=== PATIENT | male | born 1935 | race Caucasian/White ===

== ENCOUNTER 2016-07-12 11:18 | Inpatient (IN) | payer MEDICARE, OTHER ==
--- NOTE | 2016-07-12 13:51 | ED ---
General Adult HPI - General Chief complaint: Fall Stated complaint: Fall Time Seen by Provider: 07/12/16 13:33 Source: patient, family, RN notes reviewed, old records reviewed Mode of arrival: wheelchair Limitations: physical limitation - History of Present Illness Initial comments: Chief complaint history of present illness a 81-year-old male here with his [id number]. Patient has short memory problems. He does report though twice in the last several days when he stood up he walked several steps and fell down. Denies hurting himself. Denies blacking out or feeling dizzy at the time. He is here because he wants to find out why. - Related Data Home Medications Medication Instructions Recorded Confirmed Allopurinol [Zyloprim] 100 mg PO DAILY 07/12/16 07/12/16 Carvedilol [Coreg] 3.125 mg PO BID 07/12/16 07/12/16 Fluticasone/Salmeterol [Advair 1 puff INHALATION RT-BID 07/12/16 07/12/16 250-50 Diskus] Furosemide [Lasix] 40 mg PO DAILY 07/12/16 07/12/16 Gabapentin [Neurontin] 300 mg PO TID 07/12/16 07/12/16 Insulin NPL/Insulin Lispro 40 unit SQ -SUPPER 07/12/16 07/12/16 [humaLOG Mix 75-25 Kwikpen] Insulin NPL/Insulin Lispro 100 unit SQ -BRKFST 07/12/16 07/12/16 [humaLOG Mix 75-25 Kwikpen] Metolazone [Zaroxolyn] 2.5 mg PO DAILY 07/12/16 07/12/16 Omeprazole 20 mg PO DAILY 07/12/16 07/12/16 Potassium Chloride [Klor-Con 20] 20 meq PO BID 07/12/16 07/12/16 Simvastatin [Zocor] 10 mg PO HS 07/12/16 07/12/16 Spironolactone [Aldactone] 25 mg PO DAILY 07/12/16 07/12/16 Tamsulosin [Flomax] 0.4 mg PO DAILY 07/12/16 07/12/16 rOPINIRole HCL [Requip] 0.5 mg PO 07/12/16 07/12/16 Allergies Allergy/AdvReac Type Severity Reaction Status Date / Time No Known Allergies Allergy Verified 07/12/16 14:04 Review of Systems ROS Statement: Those systems with pertinent positive or pertinent negative responses have been documented in the HPI. Review of systems at this time no headache no visual acuity changes no neck pain no chest pain no shortness of breath no GI/ complaints no neuro deficits complained of weren't found. All systems reviewed. Past medical problems history of CHF, insulin-dependent diabetes mellitus, hyperlipidemia, hypertension, osteoarthritis. Patient's surgeries include CABG. Denies any others. Family history sister had laryngeal cancer. Patient denies ALLERGIES. Quit smoking and drinking 16 years ago. ROS Other: All systems not noted in ROS Statement are negative. Past Medical History Past Medical History: Diabetes Mellitus, Hyperlipidemia, Hypertension, Osteoarthritis (OA) History of Any Multi-Drug Resistant Organisms: None Reported Past Surgical History: Unable to Obtain Past Psychological History: No Psychological Hx Reported Smoking Status: Former smoker Past Alcohol Use History: Occasional Past Drug Use History: None Reported General Exam - General Exam Comments Initial Comments: General: The patient is awake and alert, in no distress, and does not appear acutely ill. Denies pain. Vital signs show temperature 97.8 pulse 84 story rate 20 pulse ox 96% room air blood pressure 107/48. Eye: Pupils are equal, round and reactive to light, extra-ocular movements are intact ; there is normal conjunctiva bilaterally. No signs of icterus. Ears, nose, mouth and throat: There are moist mucous membranes and no oral lesions. Neck: The neck is supple, there is no tenderness , no carotid bruit Cardiovascular: There is a regular rate and rhythm. Systolic murmur appreciated. Respiratory: Lungs are clear to auscultation, respirations are non-labored, breath sounds are equal. No wheezes, stridor, rales, or rhonchi. Gastrointestinal: Soft, non-distended, non-tender abdomen without masses or organomegaly noted. There is no rebound or guarding present. No CVA tenderness. Bowel sounds are unremarkable. Rectal examination was done. Some mild nodularity to the prostate appreciated. Stool was brown in color bedside guaiac was negative waiting for lab results. Back: There is no tenderness to palpation in the midline. There is no obvious deformity. Musculoskeletal: Normal ROM, no tenderness, There is no pedal edema. There is no calf tenderness or swelling. Sensation intact. Moves all extremities upper and lower without difficulty. Again claims no pain. Neurological: CN II-XII intact, There are no obvious motor or sensory deficits. Coordination appears grossly intact. Speech is normal. No neuro deficits but he is having trouble with short-term memory per [id number]. Skin: Skin is warm and dry and no rashes or lesions are noted. Psychiatric: Cooperative, appropriate mood & affect, normal judgment. No past history of any psychological issues or problems. Limitations: physical limitation Course Vital Signs 07/12/16 07/12/16 11:48 14:47 Temperature 97.8 F 97.8 F Pulse Rate 84 80 Respiratory 20 18 Rate Blood Pressure 107/48 110/59 O2 Sat by Pulse 96 97 Oximetry Medical Decision Making - Medical Decision Making Medical decision making patient's white count is low at 2.5 this is lower than it was one year ago. His hemoglobin 7.6 one year ago he was 12. Today's hematocrit is 25 and had been 36 one year ago. Platelets only 56,000. Potassium 3.8U and 40 creatinine 1.8 GFR 37. Glucose 122. Patient denies noticing any blood in his stool or any symptoms such as gastritis. The patient will be admitted the hospital transfused 1 unit and for the for further evaluation. Stool guaiac was negative per laboratory. The patient be admitted to Dr. Ritter in service. Patient receive 1 unit of packed RBCs because of symptomatic anemia with a hemoglobin 7.8. Further evaluation of be done. - Lab Data Result diagrams: 07/12/16 13:55 07/12/16 13:55 Lab Results 07/12/16 07/12/16 07/12/16 Range/Units 13:55 13:55 16:10 WBC 2.7 L (3.8-10.6) k/uL RBC 2.87 L (4.30-5.90) m/uL Hgb 7.6 L (13.0-17.5) gm/dL Hct 25.1 L (39.0-53.0) % MCV 87.4 (80.0-100.0) fL MCH 26.6 (25.0-35.0) pg MCHC 30.4 L (31.0-37.0) g/dL RDW 15.6 H (11.5-15.5) % Plt Count 56 L (150-450) k/uL Neutrophils % (Manual) 73.0 % Band Neutrophils % 1.0 % Lymphocytes % (Manual) 14.0 % Monocytes % (Manual) 11.0 % Eosinophils % (Manual) 1.0 % Neutrophils # (Manual) 2.0 (1.3-7.7) k/uL Lymphocytes # (Manual) 0.4 L (1.0-4.8) k/uL Monocytes # (Manual) 0.3 (0-1.0) k/uL Eosinophils # (Manual) 0.0 (0-0.7) k/uL Nucleated RBCs 0 (0-0) /100 WBC Manual Slide Review Performed Hypochromasia Marked Poikilocytosis (manual Present Sodium 131 L (137-145) mmol/L Potassium 3.8 (3.5-5.1) mmol/L Chloride 96 L (98-107) mmol/L Carbon Dioxide 26 (22-30) mmol/L Anion Gap 9 mmol/L BUN 40 H (9-20) mg/dL Creatinine 1.80 H (0.66-1.25) mg/dL Est GFR (MDRD) Af Amer 44 (>60 ml/min/1.73 sqM) Est GFR (MDRD) Non-Af 37 (>60 ml/min/1.73 sqM) Glucose 122 H (74-99) mg/dL Calcium 7.9 L (8.4-10.2) mg/dL Total Bilirubin 0.8 (0.2-1.3) mg/dL AST 37 (17-59) U/L ALT 33 (21-72) U/L Alkaline Phosphatase 88 (38-126) U/L Total Protein 5.6 L (6.3-8.2) g/dL Albumin 2.8 L (3.5-5.0) g/dL Stool Occult Blood Negative (Negative) Disposition Clinical Impression: Symptomatic anemia, Fall Disposition: ADMITTED IP TO THIS [facility] Condition: Serious
[2016-07-12 14:21] LABS: Aty Lym Flag Slight; CH 26.3; CHCM 30.1; HCT 25.1 % (39.0-53.0); HDW 3.16; HGB 7.6 gm/dL (13.0-17.5); Hypochromasia Marked; MCH 26.6 pg (25.0-35.0); MCHC 30.4 g/dL (31.0-37.0); MCV 87.4 fL (80.0-100.0); Mean Platelet Volume 9.4; RBC 2.87 m/uL (4.30-5.90); RDW 15.6 % (11.5-15.5); WBC 2.7 k/uL (3.8-10.6); WBC (Perox) 2.77
[2016-07-12 14:27] LABS: Calcium 7.9 mg/dL (8.4-10.2); Potassium 3.8 mmol/L (3.5-5.1); Total Bilirubin 0.8 mg/dL (0.2-1.3); Total Protein 5.6 g/dL (6.3-8.2)
[2016-07-12 14:36] LABS: Add Differential Manual Differential
[2016-07-12 14:40] LABS: Manual Review Performed; Nucleated Red Blood Cells 0 /100 WBC (0-0); Total Cells Counted 100
[2016-07-12] MEDS ORDERED: SODIUM CHLORIDE 0.9% 1,000 ML IV SCH (15:30)
[2016-07-12] MEDS ORDERED: NALOXONE 0.4 MG/ML 1 ML VIAL IV PRN (16:45)
[2016-07-12 21:27] VITALS: BMI 25.0
[2016-07-12] MEDS: POTASSIUM CHLORIDE ER 20 MEQ TAB.ER PO SCH (23:16)
[2016-07-12] MEDS: SODIUM CHLORIDE 0.9% 1,000 ML IV SCH (23:16)
[2016-07-12] MEDS: GABAPENTIN 300 MG CAP PO SCH (23:16)
[2016-07-13 05:41] LABS: Glucose,Whole Blood 112 mg/dL (75-99)
[2016-07-13 06:28] LABS: Basophils % (A) 0 %; CH 26.9; CHCM 30.3; Eosinophils # (A) 0.1 k/uL (0-0.7); Eosinophils % (A) 6 %; HCT 27.7 % (39.0-53.0); HGB 8.4 gm/dL (13.0-17.5); Hypochromasia Marked; Luc # (Auto) 0.08; Luc % (Auto) 3; Lymphocytes # (A) 0.4 k/uL (1.0-4.8); Lymphocytes % (A) 16 %; MCH 26.9 pg (25.0-35.0); MCHC 30.3 g/dL (31.0-37.0); MCV 88.8 fL (80.0-100.0); Mean Platelet Volume 9.1; Monocytes # (A) 0.1 k/uL (0-1.0); Monocytes % (A) 5 %; Neutrophils # (A) 1.8 k/uL (1.3-7.7); Neutrophils % (A) 70 %; Poikilocytosis Slight; RBC 3.12 m/uL (4.30-5.90); RDW 15.5 % (11.5-15.5); WBC 2.6 k/uL (3.8-10.6); WBC (Perox) 2.65
[2016-07-13] MEDS: SODIUM CHLORIDE 0.9% 1,000 ML IV SCH ×2 (06:31→14:48)
[2016-07-13 06:46] LABS: Anion Gap 6 mmol/L; Blood Urea Nitrogen 34 mg/dL (9-20); Calcium 7.9 mg/dL (8.4-10.2); Carbon Dioxide 24 mmol/L (22-30); Chloride 100 mmol/L (98-107); Glucose 110 mg/dL (74-99); Non-African American GFR(MDRD) 53 (>60 ml/min/1.73 sqM); Sodium 130 mmol/L (137-145)
[2016-07-13] MEDS: GABAPENTIN 300 MG CAP PO SCH ×3 (08:48→22:18)
[2016-07-13] MEDS: ALLOPURINOL 100 MG TAB PO SCH (08:48)
[2016-07-13] MEDS: POTASSIUM CHLORIDE ER 20 MEQ TAB.ER PO SCH ×2 (08:49→22:17)
[2016-07-13] MEDS: SPIRONOLACTONE 25 MG TAB PO SCH (08:50)
[2016-07-13] MEDS: METOLAZONE 2.5 MG TAB PO SCH (08:50)
[2016-07-13] MEDS: PANTOPRAZOLE 40 MG/10 ML VIAL IVP SCH ×2 (11:09→22:17)
[2016-07-13 11:40] LABS: Glucose,Whole Blood 195 mg/dL (75-99)
--- NOTE | 2016-07-13 11:42 | HP ---
DATE OF ADMISSION: CHIEF COMPLAINT: Syncope and anemia. HISTORY OF PRESENT ILLNESS: This is another admission for this 81-year-old white male who has a history of CAD, COPD, IDDM and arthritis. He apparently had possibly as many as 2 syncopal episodes or falls at home. He is not sure why. He came to the emergency room where there is no obvious abnormality without any focal neurologic deficits, abnormal vital signs, etc. However, his hemoglobin is 7.8. He denied any melena, hematochezia, abdominal pain, etc. REVIEW OF SYSTEMS: He denies any headaches, focal neurologic deficits, change in vision or hearing, palpitations, chest pain, orthopnea, PND, abdominal pain, nausea, vomiting, hematemesis, melena, hematochezia, colitis, dysuria, hematuria, frequency, etc. Past medical history, family history and personal and social histories reveal that he cannot take statins due to myalgias. He is on allopurinol 100 mg once a day, spironolactone 25 mg once a day, metolazone 2.5 mg once a day, tamsulosin 0.4 at bedtime, Humalog 75/25, 100 units in the morning and 40 at night, furosemide 40 mg once day, Advair 250/50 one puff twice a day, carvedilol 3.125 mg twice a day, ropinirole 0.5 at bedtime, potassium 20 mEq twice a day, Neurontin 300 mg t.i.d., Zocor 10 mg at bedtime, vitamin D 50,000 units a month, magnesium 64 mg 3 times a day, omeprazole 20 mg once a day, 81 mg of aspirin a day. Past medical history, family history and personal and social histories reveal that he had a prior coronary artery bypass and has been treated for congestive heart failure. His diabetes is generally fairly well controlled. He has a lot of trouble with arthritis and back pain. He does not smoke. PHYSICAL EXAM: Blood pressure 108/60 with pulse 78, respirations 16. He is afebrile. GENERAL: He appeared to be well developed, well nourished in no acute distress. Skin color is normal. Skin is warm and dry. Lymph nodes are not enlarged. Head, ears, eyes, nose, mouth, and throat were normal and carotids are normal. Neck veins not distended. Chest is clear. There are no rales. Cardiac exam demonstrated sinus rhythm with no murmurs or extra sounds. He had gynecomastia. The abdomen is soft and nontender without visceromegaly or masses. EXTREMITIES: Normal. NEUROLOGICAL: He is intact. IMPRESSION: 1. Episode of syncope (?). 2. Two separate falls at home. 3. Anemia. 4. Coronary artery disease. 5. Diabetes. 6. Chronic obstructive pulmonary disease. 7. History of congestive heart failure. PLAN: 1. Bed rest. 2. IV fluids. 3. Frequent monitoring of his vital signs, neurologic status and hemoglobin. 4. GI workup.
--- NOTE | 2016-07-13 11:46 | PN ---
DATE OF SERVICE: 07/13/2016 CHIEF COMPLAINT: Falls and anemia. HISTORY OF PRESENT ILLNESS: This gentleman is awake, alert, and he has had no signs of any blood loss. He has had no chest pain or shortness of breath. PHYSICAL EXAMINATION: His vital signs are normal. The chest is clear. Cardiac exam is normal. The abdomen is soft and nontender. IMPRESSION: 1. Frequent falling. 2. Syncopal episode. 3. Anemia. 4. Coronary artery disease. 5. Congestive heart failure. 6. Diabetes. PLAN: Continue to monitor hemoglobin and obtain GI consult.
[2016-07-13 17:11] LABS: Glucose,Whole Blood 182 mg/dL (75-99)
[2016-07-13] MEDS: SYMBICORT 80-4.5 MCG INHALER INHALATION SCH (17:38)
[2016-07-13] MEDS: INSULIN NPL/INSULIN LISPRO 100 UNIT/ML 10 ML VIAL (Humalog 75/25) SQ SCH (17:39)
[2016-07-13] MEDS: ACETAMINOPHEN TAB 325 MG TAB PO PRN (17:41)
[2016-07-13] MEDS: CARVEDILOL 3.125 MG TAB PO SCH (17:41)
[2016-07-13] MEDS: ATORVASTATIN 10 MG TAB PO SCH (22:17)
[2016-07-14 06:57] LABS: Glucose,Whole Blood 105 mg/dL (75-99)
[2016-07-14 07:57] LABS: ALT 36 U/L (21-72); AST 29 U/L (17-59); Alkaline Phosphatase 74 U/L (38-126); Anion Gap 5 mmol/L; Blood Urea Nitrogen 24 mg/dL (9-20); Carbon Dioxide 23 mmol/L (22-30); Chloride 106 mmol/L (98-107); Glucose 100 mg/dL (74-99); Non-African American GFR(MDRD) >60 (>60 ml/min/1.73 sqM); Potassium 4.3 mmol/L (3.5-5.1); Sodium 134 mmol/L (137-145); Total Bilirubin 0.9 mg/dL (0.2-1.3); Total Protein 4.7 g/dL (6.3-8.2)
[2016-07-14 08:01] LABS: Basophils % (A) 0 %; CH 26.6; CHCM 29.7; Eosinophils # (A) 0.1 k/uL (0-0.7); Eosinophils % (A) 5 %; HDW 3.81; HGB 7.8 gm/dL (13.0-17.5); Hypochromasia Marked; Luc # (Auto) 0.04; Luc % (Auto) 4; Lymphocytes # (A) 0.4 k/uL (1.0-4.8); Lymphocytes % (A) 35 %; MCH 27.1 pg (25.0-35.0); MCHC 30.2 g/dL (31.0-37.0); MCV 89.9 fL (80.0-100.0); Monocytes # (A) 0.1 k/uL (0-1.0); Monocytes % (A) 6 %; Neutrophils # (A) 0.6 k/uL (1.3-7.7); Neutrophils % (A) 50 %; Poikilocytosis Slight; RBC 2.89 m/uL (4.30-5.90); RDW 15.4 % (11.5-15.5); WBC (Perox) 1.35
--- NOTE | 2016-07-14 08:12 | CDI ---
In responding to this query, please exercise your independent professional judgment. The [facility] Coding Staff and Clinical Documentation Specialists appreciate your assistance in clarifying documentation, maintaining compliance with coding guidelines, accurately documenting patients condition and capturing severity of illness. The fact that a question is asked does not imply that any particular answer is desired or expected. Communication forms are a method of clarifying documentation and are not made part of the Legal Health Record. Thank you in advance for your clarification. Last Revision, May 2015 Licha Acuña [address] [facility] [place] [address] Documentation Clarification Form Date: 07/14/2016 8:04:00 AM From: Citlaly Brasher Admit Date: 07/12/2016 4:45:00 PM Patient Name: Doug Zimmerman Visit Number: [id number] Dr. Edvin Anderson Patient presents with a BUN/CR/GFR of: 40/1.80/37 History/Risk Factors: Hypertension Diabetes Mellitus CHF - on PO Lasix PO Aldactone Clinical Indicators: see labs above BUN/CR/GFR on07/14: 24/0.98/>60 Treatment: IV fluids @70 cc/hr Lab monitoring In order to capture the severity of condition, please clarify if the condition signifies: Acute renal failure Acute on chronic renal failure Chronic kidney disease (CKD) and please stage Stage 2 GFR 60-89 Stage 3 GFR 30-59 Other Stage (please specify) Unable to determine Other (please specify) Please document in your progress notes and discharge summary in order to capture severity of illness and risk of mortality. Include clinical findings that support your diagnosis. FYI: Press F11 to launch patient chart. Place X here if this finding has no clinical significance, is not applicable or if you are not able to provide any additional documentation. BRODY
--- NOTE | 2016-07-14 08:19 | CDI ---
In responding to this query, please exercise your independent professional judgment. The [facility] Coding Staff and Clinical Documentation Specialists appreciate your assistance in clarifying documentation, maintaining compliance with coding guidelines, accurately documenting patients condition and capturing severity of illness. The fact that a question is asked does not imply that any particular answer is desired or expected. Communication forms are a method of clarifying documentation and are not made part of the Legal Health Record. Thank you in advance for your clarification. Last Revision, May 2015 Licha Acuña [address] [facility] [place] [address] Documentation Clarification Form Date: 07/14/2016 8:12:00 AM From: Citlaly Brasher Admit Date: 07/12/2016 4:45:00 PM Patient Name: Doug Zimmerman Visit Number: [id number] Dr. Edvin Anderson History/Risk factors: Diabetes Mellitus Hypertension CHF COPD Clinical indicators: Presented due to falls Labs on presentation: wbc 2.7, rbc.87, platelets 56 Other labs: hgb 7.6 Treatment: Lab monitoring In your professional opinion, can you please clarify if these findings signify one of the following conditions? Pancytopenia drug induced, specify drug Pancytopenia due to other, please specify Anemia, please specify etiology Thrombocytopenia, please specify etiology Unable to determine Other condition (please specify) Please document in your progress notes and discharge summary in order to capture severity of illness and risk of mortality. Include clinical findings that support your diagnosis. FYI: Press F11 to launch patient chart. Place X here if this finding has no clinical significance, is not applicable or if you are not able to provide any additional documentation. MTDD
[2016-07-14 08:24] LABS: WBC 1.1 k/uL (3.8-10.6)
[2016-07-14] MEDS: GABAPENTIN 300 MG CAP PO SCH ×3 (08:30→22:18)
[2016-07-14] MEDS: FUROSEMIDE 40 MG TAB PO SCH (08:30)
[2016-07-14] MEDS: METOLAZONE 2.5 MG TAB PO SCH (08:30)
[2016-07-14] MEDS: PANTOPRAZOLE 40 MG/10 ML VIAL IVP SCH (08:30)
[2016-07-14] MEDS: CARVEDILOL 3.125 MG TAB PO SCH ×2 (08:31→17:33)
[2016-07-14] MEDS: SPIRONOLACTONE 25 MG TAB PO SCH (08:31)
[2016-07-14] MEDS: TAMSULOSIN 0.4 MG CAP.ER.24H PO SCH (08:31)
[2016-07-14] MEDS: ALLOPURINOL 100 MG TAB PO SCH (08:31)
[2016-07-14] MEDS: POTASSIUM CHLORIDE ER 20 MEQ TAB.ER PO SCH ×2 (08:31→22:18)
--- NOTE | 2016-07-14 09:39 | P.CONS ---
History of Present Illness - Reason for Consult Consult date: 07/14/16 Anemia Requesting physician: Edvin Anderson - History of Present Illness 81-year-old gentleman patient Dr. Anderson with past medical history of CAD, CHF , diabetes mellitus, COPD, alcohol liver cirrhosis; hepatitis panel negative, portal hypertension, ascites, splenomegaly with chronic thrombocytopenia, CAD, diabetes mellitus, and hyperlipidemia. Brought into the hospital by his brother -in-law reports the weakness and recent falls. Admission hemoglobin 7.6 currently 8.4. MCV 87. Hemoglobin a year ago 12.2. White count 2.6. Platelets 53,000 currently 44,000. Repeat white count 1.1. INR 1.2. BUN 34. Creatinine 1.3. Stool occult blood negative. Iron indices 1 year ago within normal limits. Consultation requested for evaluation of anemia. No history of EGD or colonoscopy. Denies hematemesis, hematochezia, melena, changes in appetite, weight loss, or abdominal pain. Review of Systems All systems: negative (See HPI) Past Medical History Past Medical History: Coronary Artery Disease (CAD), Diabetes Mellitus, Hyperlipidemia, Hypertension, Osteoarthritis (OA) History of Any Multi-Drug Resistant Organisms: None Reported Past Surgical History: Unable to Obtain Additional Past Surgical History / Comment(s): Double Hernia repair, CABG x2 1996 Past Psychological History: No Psychological Hx Reported Smoking Status: Former smoker Past Alcohol Use History: Occasional Past Drug Use History: None Reported - Past Family History Mother Family Medical History: Congestive Heart Failure (CHF) Father Family Medical History: Congestive Heart Failure (CHF) Medications and Allergies Home Medications Medication Instructions Recorded Confirmed Type Allopurinol [Zyloprim] 100 mg PO DAILY 07/12/16 07/12/16 History Carvedilol [Coreg] 3.125 mg PO BID 07/12/16 07/12/16 History Fluticasone/Salmeterol [Advair 1 puff INHALATION RT-BID 07/12/16 07/12/16 History 250-50 Diskus] Furosemide [Lasix] 40 mg PO DAILY 07/12/16 07/12/16 History Gabapentin [Neurontin] 300 mg PO TID 07/12/16 07/12/16 History Insulin NPL/Insulin Lispro 40 unit SQ AC-SUPPER 07/12/16 07/12/16 History [humaLOG Mix 75-25 Kwikpen] Insulin NPL/Insulin Lispro 100 unit SQ AC-BRKFST 07/12/16 07/12/16 History [humaLOG Mix 75-25 Kwikpen] Metolazone [Zaroxolyn] 2.5 mg PO DAILY 07/12/16 07/12/16 History Omeprazole 20 mg PO DAILY 07/12/16 07/12/16 History Potassium Chloride [Klor-Con 20] 20 meq PO BID 07/12/16 07/12/16 History Simvastatin [Zocor] 10 mg PO HS 07/12/16 07/12/16 History Spironolactone [Aldactone] 25 mg PO DAILY 07/12/16 07/12/16 History Tamsulosin [Flomax] 0.4 mg PO DAILY 07/12/16 07/12/16 History rOPINIRole HCL [Requip] 0.5 mg PO HS 07/12/16 07/12/16 History Allergies Allergy/AdvReac Type Severity Reaction Status Date / Time No Known Allergies Allergy Verified 07/12/16 14:04 Physical Exam Vitals: Vital Signs Temp Pulse Resp BP Pulse Ox 07/14/16 07:00 98.1 F 91 79 H 119/51 91 L 07/13/16 22:40 98 F 84 18 107/49 97 07/13/16 16:52 98 16 07/13/16 16:00 99.9 F H 98 16 126/56 92 L 07/13/16 12:00 98.1 F 87 16 109/49 95 Intake and Output 07/13/16 07/14/16 07/14/16 22:59 06:59 14:59 Intake Total 260 800 Balance 260 800 Intake: IV 210 560 Sodium Chloride 0.9% 1, 210 560 000 ml @ 70 mls/hr IV . [id number] [facility] Rx#:[id number] Oral 50 240 Other: Voiding Method Bedside Commode Bedside Commode Urinal Urinal # Voids 1 Weight 61.5 kg General appearance: The patient is alert, oriented, in no acute distress. HET: Head is normocephalic and atraumatic. Pupils are equal and reactive. Oropharynx is clear without lesions. Neck: Supple without lymphadenopathy. Trachea midline. Heart: S1 S2. Regular rate and rhythm. Lungs: No crackles or wheezes are heard. Abdomen: Soft, nontender, nondistended with bowel sounds. No peritoneal signs. No palpable organomegaly or masses. Extremities: Normal skin color and turgor. No cyanosis, rash, ulceration, clubbing, or edema. Radial and pedal pulses are 2/4 bilaterally. Neurological: No focal deficits. Strength and sensation are grossly intact. Results CBC & Chem 7: 07/15/16 07:20 07/15/16 07:20 Labs: Abnormal Lab Results - Last 24 Hours (Table) 07/13/16 07/13/16 07/14/16 Range/Units 11:38 17:05 06:56 Sodium (137-145) mmol/L BUN (9-20) mg/dL Glucose (74-99) mg/dL POC Glucose (mg/dL) 195 H 182 H 105 H (75-99) mg/dL Calcium (8.4-10.2) mg/dL Total Protein (6.3-8.2) g/dL Albumin (3.5-5.0) g/dL 07/14/16 Range/Units 07:10 Sodium 134 L (137-145) mmol/L BUN 24 H (9-20) mg/dL Glucose 100 H (74-99) mg/dL POC Glucose (mg/dL) (75-99) mg/dL Calcium 8.0 L (8.4-10.2) mg/dL Total Protein 4.7 L (6.3-8.2) g/dL Albumin 2.2 L (3.5-5.0) g/dL Assessment and Plan (1) Symptomatic anemia Narrative/Plan: 81-year-old male with a history of cirrhosis admitted with symptomatic anemia without overt bleeding. Rule out occult loss. Status: Acute (2) Pancytopenia Status: Acute (3) Cirrhosis Status: Acute (4) Thrombocytopenia Status: Chronic (5) Splenomegaly Status: Chronic (6) H/O ETOH abuse Status: Chronic Plan: 1. EGD colonoscopy once pancytopenia improves this can be performed as an outpatient, he has passed a few brown colored bowel movements in the last 24 hours. His overall pancytopenic presentation appears to be chronic in nature. Advance diet. Return to office in 1-2 weeks for discussion of outpatient endoscopy based on repeat outpatient chemistries. 2. AFP level reviewed. 3. Iron indices reviewed. 4. Hematology consultation for pancytopenia recommended. 5. Will follow as needed. Assessment and plan of care discussed with Dr. Leonard.
[2016-07-14 10:21] LABS: Hemoglobin A1C 6.1 % (4.2-6.1)
[2016-07-14 11:40] LABS: Glucose,Whole Blood 145 mg/dL (75-99)
[2016-07-14] MEDS: ACETAMINOPHEN TAB 325 MG TAB PO PRN (13:01)
[2016-07-14] MEDS: SODIUM CHLORIDE 0.9% 1,000 ML IV SCH (13:02)
[2016-07-14 14:04] LABS: % Iron Saturation 8.9 % (20-50)
--- NOTE | 2016-07-14 14:23 | PN ---
DATE OF SERVICE: 07/14/2015 CHIEF COMPLAINT: Anemia. HISTORY OF PRESENT ILLNESS: This gentleman is doing fairly well and he has had no further problems but he is going for a scope tomorrow. PHYSICAL EXAM: His color is good and chest is clear. Cardiac exam is normal. The abdomen is soft and nontender. IMPRESSION: Anemia, probably due to gastrointestinal blood loss. PLAN: Scope is tomorrow.
[2016-07-14] MEDS ORDERED: PEG 3350-NA SULF,BICARB,CL/KCL 4,000 ML BOTTLE PO ONE (15:00)
[2016-07-14] MEDS: SYMBICORT 80-4.5 MCG INHALER INHALATION SCH ×3 (15:20→15:23)
[2016-07-14 17:07] LABS: Glucose,Whole Blood 214 mg/dL (75-99)
[2016-07-14] MEDS: INSULIN NPL/INSULIN LISPRO 100 UNIT/ML 10 ML VIAL (Humalog 75/25) SQ SCH (17:35)
[2016-07-14 20:18] LABS: Glucose,Whole Blood 169 mg/dL (75-99)
[2016-07-14] MEDS: ATORVASTATIN 10 MG TAB PO SCH (22:18)
[2016-07-15] MEDS: SODIUM CHLORIDE 0.9% 1,000 ML IV SCH (02:00)
[2016-07-15 07:41] LABS: Basophils % (A) 1 %; CH 26.6; CHCM 28.7; Eosinophils # (A) 0.1 k/uL (0-0.7); Eosinophils % (A) 5 %; HCT 28.8 % (39.0-53.0); HDW 3.58; HGB 8.4 gm/dL (13.0-17.5); Hypochromasia Marked; Large Platelets Flag Slight; Luc # (Auto) 0.04; Luc % (Auto) 3; Lymphocytes # (A) 0.5 k/uL (1.0-4.8); Lymphocytes % (A) 34 %; MCH 27.2 pg (25.0-35.0); MCHC 29.3 g/dL (31.0-37.0); Mean Platelet Volume 11.9; Monocytes # (A) 0.1 k/uL (0-1.0); Monocytes % (A) 8 %; Neutrophils # (A) 0.7 k/uL (1.3-7.7); Neutrophils % (A) 50 %; Poikilocytosis Slight; RBC 3.09 m/uL (4.30-5.90); RDW 15.7 % (11.5-15.5); WBC (Perox) 1.43
[2016-07-15 07:46] LABS: WBC 1.5 k/uL (3.8-10.6)
[2016-07-15 07:53] LABS: ALT 36 U/L (21-72); AST 36 U/L (17-59); Alkaline Phosphatase 70 U/L (38-126); Anion Gap 8 mmol/L; Blood Urea Nitrogen 19 mg/dL (9-20); Carbon Dioxide 17 mmol/L (22-30); Chloride 107 mmol/L (98-107); Glucose 94 mg/dL (74-99); Non-African American GFR(MDRD) >60 (>60 ml/min/1.73 sqM); Sodium 132 mmol/L (137-145)
[2016-07-15 08:00] LABS: Glucose,Whole Blood 97 mg/dL (75-99)
[2016-07-15 08:06] LABS: Potassium 5.1 mmol/L (3.5-5.1)
[2016-07-15] MEDS: GABAPENTIN 300 MG CAP PO SCH (08:37)
[2016-07-15] MEDS: SPIRONOLACTONE 25 MG TAB PO SCH (08:38)
[2016-07-15] MEDS: POTASSIUM CHLORIDE ER 20 MEQ TAB.ER PO SCH (08:38)
[2016-07-15] MEDS: CARVEDILOL 3.125 MG TAB PO SCH (08:38)
[2016-07-15] MEDS: METOLAZONE 2.5 MG TAB PO SCH (08:38)
[2016-07-15] MEDS: FUROSEMIDE 40 MG TAB PO SCH (08:38)
[2016-07-15] MEDS: ALLOPURINOL 100 MG TAB PO SCH (08:38)
[2016-07-15] MEDS: TAMSULOSIN 0.4 MG CAP.ER.24H PO SCH (08:38)
[2016-07-15] MEDS ORDERED: PANTOPRAZOLE 40 MG/10 ML VIAL IVP SCH (09:00)
[2016-07-15 09:18] VITALS: BP 119/56; PULSE 76; RESP 20; TEMP 98.2
--- NOTE | 2016-07-15 10:55 | P.CONS ---
History of Present Illness - Reason for Consult Consult date: 07/14/16 pancytopenia Requesting physician: Karlie Gama - Chief Complaint falls - History of Present Illness Mr. Zimmerman is a pleasant male pt who was referred to Dr. Servin by his PCP , Dr Anderson for a low platelet count, on 11/15/14 when his plt count was 72, 000. a few rprevious labs were reviewed and confirmed the same. His labs also showed a borderline anemia and leukopenia. Pt has a history of heavy ETOH use, quitting in the mid s. Additional work up was positive for heterogenous liver with mild splenomegaly on US, consistent with cirrhosis and portal HTN. Iron stores were low, he had mildly elevated rheumatoid factor and kappa light chains, which was non specific. He had a colonoscopy in 02/15 with polyp removal. He was subsequently started on PO iron. As plt appeared to be low due to prior ETOH use, and splenic sequestration and observation was recommended. Pt was last seen by Dr. Servin about 1 year ago, he had not followed up as directed for unclear reasons. Pt did not remember ever seeing Dr. Servin and he is not able to recall if he has a problem with his blood. He does bruise easily , denied bloody nose, coughing up blood or seeing blood in the toilet when he goes to the bathroom. He said he was recently hospitalized at [facility] for CHF, he states his legs are still swollen. He denies chest pain or palpitations, he has an occasional cough and can be SOB when he is active. He denies sweating at night, difficulty swallowing, vomiting, heartburn. He does fill up fast, he can only eat about half of his breakfast from [employer] at once, he denies loss of appetite. Review of Systems All systems: negative Constitutional: Reports as per HPI Past Medical History Past Medical History: Coronary Artery Disease (CAD), Diabetes Mellitus, Hyperlipidemia, Hypertension, Liver Disease, Osteoarthritis (OA) History of Any Multi-Drug Resistant Organisms: None Reported Past Surgical History: Unable to Obtain Additional Past Surgical History / Comment(s): Double Hernia repair, CABG x2 1996 Past Psychological History: No Psychological Hx Reported Smoking Status: Former smoker Past Alcohol Use History: Occasional Past Drug Use History: None Reported - Past Family History Mother Family Medical History: Congestive Heart Failure (CHF) Father Family Medical History: Congestive Heart Failure (CHF) Medications and Allergies Home Medications Medication Instructions Recorded Confirmed Type Allopurinol [Zyloprim] 100 mg PO DAILY 07/12/16 07/12/16 History Carvedilol [Coreg] 3.125 mg PO BID 07/12/16 07/12/16 History Fluticasone/Salmeterol [Advair 1 puff INHALATION RT-BID 07/12/16 07/12/16 History 250-50 Diskus] Furosemide [Lasix] 40 mg PO DAILY 07/12/16 07/12/16 History Gabapentin [Neurontin] 300 mg PO TID 07/12/16 07/12/16 History Insulin NPL/Insulin Lispro 40 unit SQ AC-SUPPER 07/12/16 07/12/16 History [humaLOG Mix 75-25 Kwikpen] Insulin NPL/Insulin Lispro 100 unit SQ -BRKFST 07/12/16 07/12/16 History [humaLOG Mix 75-25 Kwikpen] Metolazone [Zaroxolyn] 2.5 mg PO DAILY 07/12/16 07/12/16 History Omeprazole 20 mg PO DAILY 07/12/16 07/12/16 History Potassium Chloride [Klor-Con 20] 20 meq PO BID 07/12/16 07/12/16 History Simvastatin [Zocor] 10 mg PO HS 07/12/16 07/12/16 History Spironolactone [Aldactone] 25 mg PO DAILY 07/12/16 07/12/16 History Tamsulosin [Flomax] 0.4 mg PO DAILY 07/12/16 07/12/16 History rOPINIRole HCL [Requip] 0.5 mg PO HS 07/12/16 07/12/16 History Allergies Allergy/AdvReac Type Severity Reaction Status Date / Time No Known Allergies Allergy Verified 07/12/16 14:04 Physical Exam Vitals: Vital Signs Temp Pulse Resp BP Pulse Ox 07/14/16 16:00 18 07/14/16 15:00 98 F 74 18 123/55 95 07/14/16 08:00 16 07/14/16 07:00 98.1 F 91 79 H 119/51 91 L 07/13/16 22:40 98 F 84 18 107/49 97 Intake and Output 07/14/16 07/14/1617 06:59 14:59 22:59 Intake Total 800 490 Balance 800 490 Intake: IV 560 490 Sodium Chloride 0.9% 1, 560 490 000 ml @ 70 mls/hr IV . [id number] [facility] Rx#:[id number] Oral 240 Other: Voiding Method Bedside Commode Bedside Commode Bedside Commode Urinal Urinal Urinal # Voids 1 3 Weight 61.5 kg - Constitutional General appearance: average body habitus, cooperative, no acute distress - EENT dry mouth Eyes: anicteric sclerae - Neck Neck: no lymphadenopathy - Respiratory Respiratory: bilateral: CTA - Cardiovascular Heart sounds: normal: S1, S2 leg Peripheral Edema: bilateral: None - Gastrointestinal General gastrointestinal: normal bowel sounds, soft, splenomegaly - Neurologic Neurologic: CNII-XII intact - Musculoskeletal Musculoskeletal: strength equal bilaterally - Psychiatric Psychiatric: A&O x's 3, appropriate affect Results CBC & Chem 7: 07/15/16 07:20 07/15/16 07:20 Labs: Abnormal Lab Results - Last 24 Hours (Table) 07/14/16 07/14/16 07/14/16 Range/Units 06:56 07:10 07:10 WBC 1.1 L* (3.8-10.6) k/uL RBC 2.89 L (4.30-5.90) m/uL Hgb 7.8 L (13.0-17.5) gm/dL Hct 26.0 L (39.0-53.0) % MCHC 30.2 L (31.0-37.0) g/dL Plt Count 44 L* (150-450) k/uL Neutrophils # 0.6 L (1.3-7.7) k/uL Lymphocytes # 0.4 L (1.0-4.8) k/uL Sodium 134 L (137-145) mmol/L BUN 24 H (9-20) mg/dL Glucose 100 H (74-99) mg/dL POC Glucose (mg/dL) 105 H (75-99) mg/dL Calcium 8.0 L (8.4-10.2) mg/dL Iron (49-181) ug/dL % Saturation (20-50) % Total Protein 4.7 L (6.3-8.2) g/dL Albumin 2.2 L (3.5-5.0) g/dL 07/14/16 07/14/16 07/14/16 Range/Units 07:10 11:38 17:05 WBC (3.8-10.6) k/uL RBC (4.30-5.90) m/uL Hgb (13.0-17.5) gm/dL Hct (39.0-53.0) % MCHC (31.0-37.0) g/dL Plt Count (150-450) k/uL Neutrophils # (1.3-7.7) k/uL Lymphocytes # (1.0-4.8) k/uL Sodium (137-145) mmol/L BUN (9-20) mg/dL Glucose (74-99) mg/dL POC Glucose (mg/dL) 145 H 214 H (75-99) mg/dL Calcium (8.4-10.2) mg/dL Iron 26 L (49-181) ug/dL % Saturation 8.9 L (20-50) % Total Protein (6.3-8.2) g/dL Albumin (3.5-5.0) g/dL Assessment and Plan (1) Pancytopenia Narrative/Plan: Anemia-pt had 1 unit PRBCs, Hgb stable at this time. Pt has history of iron deficiency, most recent iron studies indicate the same, pt does not remember the last time he took an iron pill. He was recommended to stay on 1 tab daily when he last saw Dr. Servin. Pt will be supplemented with IV, oral at home. Leukopenia-No acute intervention at this time, cont to monitor Thrombocytopenia-cont to monitor, no ASA, NSAIDs or anticoagulants if plt <50, 000. 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 Also, poor marrow response due to damage from history of ETOH abuse. Dr. Servin would like to see pt in 1 mo for follow up CBC. Status: Acute
[2016-07-15] MEDS ORDERED: SODIUM FERRIC GLUCONAT-SUCROSE 125 MG in SODIUM CHLORIDE 0.9% 100 ML IVPB ONE (11:00)
[2016-07-15 11:06] LABS: Manual Review Performed
[2016-07-15 11:56] LABS: Glucose,Whole Blood 184 mg/dL (75-99)
--- NOTE | 2016-07-15 14:13 | P.DS ---
Providers Date of admission: 07/12/16 16:45 Expected date of discharge: 07/15/16 Attending physician: Edvin Anderson Consults: 07/14/16 09:46 Consult Physician Stat Consulting Provider: Kedar Servin Consult Reason/Comments: low plts Do you want consulting provider notified?: Yes Primary care physician: Edvin Anderson Hospital Course: 81-year-old who presented on the day of admission to the emergency room to be evaluated for a chief complaint of feeling dizzy lightheaded patient is a poor historian has poor past medical history recall. According to the patient is last drink of alcohol was 16 years prior. 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 Patient brought in by his [id number]-ara with a chief complaint of weakness and reportedly had been experiencing recent falls. Patient was seen by gastroenterology service for anemia hemoglobin a year ago was 12 Dr. Merritt GI service indicated that they would proceed with an EGD and a colonoscopy in the outpatient setting this could be arranged once the pancytopenia improved. Patient was admitted with GI following as well as Dr. Servin hematology. Gastroneurology recommended that the patient could return to the office 1-2 weeks to discuss outpatient options such as endoscopies as part of the workup. Patient's pancytopenia and thrombocytopenia i splenomegaly were all felt to be chronic due to patient's prior history of alcohol abuse resulting in alcoholic cirrhosis of the liver Dr. Servin indicated the patient has been seen in his office in the past and would recommend that the patient will follow-up as directed. Dr. Servin indicated the patient did not keep scheduled appointments Patient would be set up for iron supplements to be addressed. There was no further episodes of active bleeding and patient was felt to be stable and appropriate to proceed with a discharge home. Hemoglobin on the day of discharge was 8.4. Patient did receive an IV iron supplement there was no further dizziness or lightheadedness. The discharge instructions reviewed with the patient and the [id number] (1) Symptomatic anemia Narrative/Plan: 81-year-old male with a history of cirrhosis admitted with symptomatic anemia without overt bleeding. 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 Impression and the plan of care have been dictated as directed. Karlie Gama nurse practitioner acting as a scribe for dr anderson Patient Condition at Discharge: Serious Plan - Discharge Summary New Discharge Prescriptions: Iron Polysaccharide Complex [Ferrex 150] 150 mg PO DAILY #90 capsule Discharge Medication List Allopurinol [Zyloprim] 100 mg PO DAILY 07/12/16 [History] Carvedilol [Coreg] 3.125 mg PO BID 07/12/16 [History] Fluticasone/Salmeterol [Advair 250-50 Diskus] 1 puff INHALATION RT-BID 07/12/16 [History] Furosemide [Lasix] 40 mg PO DAILY 07/12/16 [History] Gabapentin [Neurontin] 300 mg PO TID 07/12/16 [History] Insulin NPL/Insulin Lispro [humaLOG Mix 75-25 Kwikpen] 40 unit SQ AC-SUPPER 03/20 [History] Insulin NPL/Insulin Lispro [humaLOG Mix 75-25 Kwikpen] 100 unit SQ AC-BRKFST 03/20 [History] Metolazone [Zaroxolyn] 2.5 mg PO DAILY 07/12/16 [History] Omeprazole 20 mg PO DAILY 07/12/16 [History] Potassium Chloride [Klor-Con 20] 20 meq PO BID 07/12/16 [History] Simvastatin [Zocor] 10 mg PO HS 07/12/16 [History] Spironolactone [Aldactone] 25 mg PO DAILY 07/12/16 [History] Tamsulosin [Flomax] 0.4 mg PO DAILY 07/12/16 [History] rOPINIRole HCL [Requip] 0.5 mg PO HS 07/12/16 [History] Iron Polysaccharide Complex [Ferrex 150] 150 mg PO DAILY #90 capsule 07/15/16 [ Rx] Follow up Appointment(s)/Referral(s): Kedar Servin MD [STAFF PHYSICIAN] - 08/06/16 11:30 am Edvin Anderson MD [Primary Care Provider] - 1-2 days Silviano Leonard MD [STAFF PHYSICIAN] - 2 Weeks Activity/Diet/Wound Care/Special Instructions: wants pneumonia vaccine before discharge Discharge Disposition: HOME SELF-CARE
--- NOTE | 2016-07-15 19:09 | PN ---
DATE OF SERVICE: 07/15/2016 CHIEF COMPLAINT: Anemia and possible GI blood loss. HISTORY OF PRESENT ILLNESS: This gentleman is doing well. He has been stable and feeling well. He has been seen by Hematology and he will not be getting endoscopies. It sounds as though he may be going home today and will be followed as an outpatient. PHYSICAL EXAMINATION: CHEST: Clear and. CARDIAC: Normal. ABDOMEN: Soft, nontender. IMPRESSION: 1. Pancytopenia. 2. Probable mild dysplasia. 3. Coronary artery disease. 4. Chronic obstructive pulmonary disease. 5. Congestive heart failure. 6. Diabetes. PLAN: Probably home today. This will be arranged by the nurse practitioner.
--- NOTE | 2016-07-27 11:07 | P.PN ---
Subjective Principal diagnosis: anemia Late entry data service 07/15/2016: 81-year-old gentleman with a history of alcohol liver cirrhosis portal hypertension and ascites chronic thrombocytopenia splenomegaly admitted with a symptomatically anemia without overt bleeding. Patient is passing brown colored stools. Seen by hematology yesterday recommendations noted. White count 1.5 this morning. Hemoglobin 8.4. Platelet 46. Denies abdominal pain. Tolerating diet. Objective - Vital Signs Vital signs: Vital Signs Temp 98.2 F 07/15/16 07:00 Pulse 76 07/15/16 08:00 Resp 20 07/15/16 08:00 BP 119/56 07/15/16 07:00 Pulse Ox 97 07/15/16 07:00 - Exam General appearance: The patient is alert, oriented, in no acute distress. HET: Head is normocephalic and atraumatic. Pupils are equal and reactive. Oropharynx is clear without lesions. Neck: Supple without lymphadenopathy. Trachea midline. Heart: S1 S2. Regular rate and rhythm. Lungs: No crackles or wheezes are heard. Abdomen: Soft, nontender, nondistended with bowel sounds. No peritoneal signs. No palpable organomegaly or masses. Extremities: Normal skin color and turgor. No cyanosis, rash, ulceration, clubbing, or edema. Radial and pedal pulses are 2/4 bilaterally. Neurological: No focal deficits. Strength and sensation are grossly intact. - Labs CBC & Chem 7: 07/15/16 07:20 07/15/16 07:20 Assessment and Plan (1) Symptomatic anemia Narrative/Plan: 81-year-old male with a history of cirrhosis admitted with symptomatic anemia without overt bleeding. Rule out occult loss. Status: Acute (2) Pancytopenia Status: Acute (3) Cirrhosis Status: Acute (4) Thrombocytopenia Status: Chronic (5) Splenomegaly Status: Chronic (6) H/O ETOH abuse Status: Chronic Plan: 1. EGD colonoscopy once pancytopenia improves this can be performed as an outpatient, he has passed a few brown colored bowel movements in the last 24 hours. His overall pancytopenic presentation appears to be chronic in nature. Advance diet. Return to office in 1-2 weeks for discussion of outpatient endoscopy based on repeat outpatient chemistries. 2. Discharge per medicine. Assessment and plan of care discussed with Dr. Leonard.
== END 2016-07-15 15:25 | disposition home or self-care (01) | DRG 812 ==
LOC: EC 11:18 → 6SEL 16:45 → 5MS5E 07-13 14:33
PROVIDERS: ADMIT Family Medicine; ATTEND Family Medicine
PROC: 30230N1 Transfusion of Nonautologous Red Blood Cells into Peripheral Vein, Open Approach (ICD-10-PCS; principal; 2016-07-12)
DX: D50.0 Iron deficiency anemia secondary to blood loss (chronic) (principal); N17.9 Acute kidney failure, unspecified; D61.818 Other pancytopenia; K76.6 Portal hypertension; I11.0 Hypertensive heart disease with heart failure; I50.9 Heart failure, unspecified; E86.0 Dehydration; J44.9 Chronic obstructive pulmonary disease, unspecified; E11.9 Type 2 diabetes mellitus without complications; K70.30 Alcoholic cirrhosis of liver without ascites; F03.90 Unspecified dementia, unspecified severity, without behavioral disturbance, psychotic disturbance, mood disturbance, and anxiety; Z91.81 History of falling; E78.5 Hyperlipidemia, unspecified; I25.10 Atherosclerotic heart disease of native coronary artery without angina pectoris; F10.10 Alcohol abuse, uncomplicated; K76.9 Liver disease, unspecified; M19.90 Unspecified osteoarthritis, unspecified site; Z87.891 Personal history of nicotine dependence; Z95.1 Presence of aortocoronary bypass graft; Z79.4 Long term (current) use of insulin; Z79.51 Long term (current) use of inhaled steroids; Z79.899 Other long term (current) drug therapy
CPT/HCPCS: 36415; 36430; 80048; 80053; 82105; 82272; 82728; 83036; 83540; 83550; 85025; 86850; 86900; 86901; 86920; 96361; 96374; 99285

== ENCOUNTER 2016-09-02 11:23 | Emergency (ER) | payer MEDICARE, OTHER ==
[2016-09-02 11:36] VITALS: RESP 18
[2016-09-02 11:41] LABS: Glucose,Whole Blood 129 mg/dL (75-99)
--- NOTE | 2016-09-02 12:02 | ED ---
General Adult HPI - General Chief complaint: Recheck/Abnormal Lab/Rx Stated complaint: Hyperglycemia Time Seen by Provider: 09/02/16 11:39 Source: patient, RN notes reviewed, old records reviewed Mode of arrival: EMS Limitations: no limitations - History of Present Illness Initial comments: This is a 81-year-old male the ER for evaluation of possible medication reaction. Patient took his insulin today and then went to his doctor's clinic outside checked and had [place]. Patient did make it through the appointment there concern for his blood sugar dropping as he had [place] since his insulin was taken, patient did take his insulin as he does every day around 8 AM. At this point patient states and the medic is no complaints of headache and nausea vomiting diarrhea. No fevers, no complaints. Patient doctor's appointment which is a normal checkup. Patient dictated is mildly hungry, his blood sugar this time is normal - Related Data Home Medications Medication Instructions Recorded Confirmed Allopurinol [Zyloprim] 100 mg PO DAILY 07/12/16 07/12/16 Carvedilol [Coreg] 3.125 mg PO BID 07/12/16 07/12/16 Fluticasone/Salmeterol [Advair 1 puff INHALATION RT-BID 07/12/16 07/12/16 250-50 Diskus] Furosemide [Lasix] 40 mg PO DAILY 07/12/16 07/12/16 Gabapentin [Neurontin] 300 mg PO TID 07/12/16 07/12/16 Insulin NPL/Insulin Lispro 40 unit SQ AC-SUPPER 07/12/16 07/12/16 [humaLOG Mix 75-25 Kwikpen] Insulin NPL/Insulin Lispro 100 unit SQ -BRKFST 07/12/16 07/12/16 [humaLOG Mix 75-25 Kwikpen] Metolazone [Zaroxolyn] 2.5 mg PO DAILY 07/12/16 07/12/16 Omeprazole 20 mg PO DAILY 07/12/16 07/12/16 Potassium Chloride [Klor-Con 20] 20 meq PO BID 07/12/16 07/12/16 Simvastatin [Zocor] 10 mg PO HS 07/12/16 07/12/16 Spironolactone [Aldactone] 25 mg PO DAILY 07/12/16 07/12/16 Tamsulosin [Flomax] 0.4 mg PO DAILY 07/12/16 07/12/16 rOPINIRole HCL [Requip] 0.5 mg PO HS 07/12/16 07/12/16 Previous Rx's Medication Instructions Recorded Iron Polysaccharide Complex 150 mg PO DAILY #90 capsule 07/15/16 [Ferrex 150] Allergies Allergy/AdvReac Type Severity Reaction Status Date / Time No Known Allergies Allergy Verified 09/02/16 11:58 Review of Systems ROS Statement: Those systems with pertinent positive or pertinent negative responses have been documented in the HPI. ROS Other: All systems not noted in ROS Statement are negative. Past Medical History Past Medical History: Coronary Artery Disease (CAD), Diabetes Mellitus, Hyperlipidemia, Hypertension, Liver Disease, Osteoarthritis (OA) History of Any Multi-Drug Resistant Organisms: None Reported Past Surgical History: Unable to Obtain Additional Past Surgical History / Comment(s): Double Hernia repair, CABG x2 1996 Past Psychological History: No Psychological Hx Reported Smoking Status: Former smoker Past Alcohol Use History: Occasional Past Drug Use History: None Reported - Past Family History Mother Family Medical History: Congestive Heart Failure (CHF) Father Family Medical History: Congestive Heart Failure (CHF) General Exam Limitations: no limitations General appearance: alert, in no apparent distress Head exam: Present: atraumatic, normocephalic, normal inspection Eye exam: Present: normal appearance, PERRL, EOMI. Absent: scleral icterus, conjunctival injection, periorbital swelling ENT exam: Present: normal exam, mucous membranes moist Neck exam: Present: normal inspection. Absent: tenderness, meningismus, lymphadenopathy Respiratory exam: Present: normal lung sounds bilaterally. Absent: respiratory distress, wheezes, rales, rhonchi, stridor Cardiovascular Exam: Present: regular rate, normal rhythm, normal heart sounds. Absent: systolic murmur, diastolic murmur, rubs, gallop, clicks GI/Abdominal exam: Present: soft, normal bowel sounds. Absent: distended, tenderness, guarding, rebound, rigid Extremities exam: Present: normal inspection, full ROM, normal capillary refill. Absent: tenderness, pedal edema, joint swelling, calf tenderness Back exam: Present: normal inspection Neurological exam: Present: alert, oriented X3, CN II-XII intact Psychiatric exam: Present: normal affect, normal mood Skin exam: Present: warm, dry, intact, normal color. Absent: rash Course Vital Signs 09/02/16 11:28 Temperature 97.1 F L Pulse Rate 69 Respiratory 18 Rate Blood Pressure 126/52 O2 Sat by Pulse 100 Oximetry - Reevaluation(s) Reevaluation #1: 09/02/16 12:01 Patient's awake and alert, 4 hours presents insulin injection Medical Decision Making - Medical Decision Making Study 9 meld ER for evaluation of possible hypoglycemia secondary to insulin, patient is able to eat, patient will be discharged home - Lab Data Lab Results 09/02/16 Range/Units 11:39 POC Glucose (mg/dL) 129 H (75-99) mg/dL POC Glu [employer] ID [email or web address] Disposition Clinical Impression: Diabetic hypoglycemia Disposition: HOME SELF-CARE Condition: Good Instructions: Hypoglycemia in a Person with Diabetes (ED) Referrals: Edvin Anderson MD [Primary Care Provider] - 1-2 days
[2016-09-02 13:11] VITALS: BP 132/51; PULSE 72; TEMP 97.1
== END 2016-09-02 13:11 | disposition home or self-care (01) ==
LOC: EC 11:23
DX: E11.649 Type 2 diabetes mellitus with hypoglycemia without coma (principal); E78.5 Hyperlipidemia, unspecified; I25.10 Atherosclerotic heart disease of native coronary artery without angina pectoris; I10 Essential (primary) hypertension; M19.90 Unspecified osteoarthritis, unspecified site; Z87.891 Personal history of nicotine dependence; Z87.19 Personal history of other diseases of the digestive system; Z79.51 Long term (current) use of inhaled steroids; Z79.4 Long term (current) use of insulin; Z79.899 Other long term (current) drug therapy; Z95.1 Presence of aortocoronary bypass graft
CPT/HCPCS: 36415; 99285

== ENCOUNTER → 2017-01-21 | Outpatient (CLI) | payer MEDICARE, OTHER ==
[2017-01-21 11:35] LABS: CHCM 32.6; HCT 32.3 % (39.0-53.0); HDW 2.89; HGB 10.5 gm/dL (13.0-17.5); MCH 34.9 pg (25.0-35.0); MCHC 32.3 g/dL (31.0-37.0); MCV 108.1 fL (80.0-100.0); Macrocytosis Moderate; Mean Platelet Volume 8.7; RBC 2.99 m/uL (4.30-5.90); RDW 14.2 % (11.5-15.5); WBC 4.2 k/uL (3.8-10.6)
[2017-01-21 11:45] LABS: ALT 36 U/L (21-72); AST 26 U/L (17-59); Alkaline Phosphatase 119 U/L (38-126); Anion Gap 8 mmol/L; Blood Urea Nitrogen 22 mg/dL (9-20); Calcium 8.5 mg/dL (8.4-10.2); Carbon Dioxide 22 mmol/L (22-30); Chloride 110 mmol/L (98-107); Glucose 122 mg/dL (74-99); Non-African American GFR(MDRD) >60 (>60 ml/min/1.73 sqM); Potassium 4.6 mmol/L (3.5-5.1); Sodium 140 mmol/L (137-145); Total Bilirubin 1.2 mg/dL (0.2-1.3); Total Protein 5.3 g/dL (6.3-8.2)
[2017-01-21 12:22] LABS: INR 1.2 (<1.2)
== END | disposition home or self-care (01) ==
LOC: LABWHC1 11:06
PROVIDERS: ATTEND Internal Medicine Gastroenterology
DX: K74.60 Unspecified cirrhosis of liver (principal)
CPT/HCPCS: 36415; 80053; 82105; 85027; 85610

== ENCOUNTER → 2017-08-05 | Outpatient (CLI) | payer MEDICARE, OTHER ==
[2017-08-05 10:19] LABS: HCT 36.1 % (39.0-53.0); HGB 11.3 gm/dL (13.0-17.5); MCH 31.3 pg (25.0-35.0); MCHC 31.4 g/dL (31.0-37.0); MCV 99.5 fL (80.0-100.0); Mean Platelet Volume 9.1; RBC 3.62 m/uL (4.30-5.90); RDW 14.2 % (11.5-15.5); WBC 4.3 k/uL (3.8-10.6)
[2017-08-05 10:20] LABS: INR 1.3 (<1.2); Prothrombin Time 12.1 sec (9.0-12.0)
[2017-08-05 10:26] LABS: Platelet Count 53 k/uL (150-450)
[2017-08-05 10:32] LABS: ALT 23 U/L (21-72); AST 23 U/L (17-59); Albumin 3.3 g/dL (3.5-5.0); Alkaline Phosphatase 109 U/L (38-126); Anion Gap 6 mmol/L; Blood Urea Nitrogen 28 mg/dL (9-20); Calcium 9.4 mg/dL (8.4-10.2); Carbon Dioxide 30 mmol/L (22-30); Chloride 101 mmol/L (98-107); Glucose 158 mg/dL (74-99); Potassium 4.2 mmol/L (3.5-5.1); Sodium 137 mmol/L (137-145)
== END | disposition home or self-care (01) ==
LOC: LABWHC1 09:47
PROVIDERS: ATTEND Internal Medicine Gastroenterology
DX: K74.60 Unspecified cirrhosis of liver (principal)
CPT/HCPCS: 36415; 80053; 82105; 85027; 85610

== ENCOUNTER → 2017-08-12 | Outpatient (CLI) | payer MEDICARE, OTHER ==
--- NOTE | 2017-08-12 08:22 | US ---
EXAMINATION TYPE: US portal vein DATE OF EXAM: 08/12/2017 COMPARISON: Ultrasound abdomen 01/30/2015 CLINICAL HISTORY: K74.60 cirrhosis of the liver. Cirrhosis EXAM MEASUREMENTS: Liver Length: 9.7cm Gallbladder Wall: 0.3cm CBD: 0.3cm Right Kidney: 11.3 x 4.6 x 4.1cm ANATOMY: Pancreas: Head and body the pancreas is normal. Distal tail of pancreas is limited evaluation due to overlying bowel content Liver: heterogeneous Color flow patency within the portal vein: yes Portal Vein Flow: possible hepatofugal as noted on prior exam. Gallbladder: echogenic foci noted Evidence for sonographic Cadet's sign: no CBD: appears wnl Right Kidney: no evidence of hydronephrosis or mass IMPRESSION: 1. There appears to be hepatofugal pubic tubercle flow within the portal vein which was present on exam. 2. Heterogenous appearance of the liver.
== END | disposition home or self-care (01) ==
LOC: RADUSWWP 06:57
PROVIDERS: ATTEND Internal Medicine Gastroenterology
DX: K74.60 Unspecified cirrhosis of liver (principal); K76.89 Other specified diseases of liver
CPT/HCPCS: 93976

== ENCOUNTER → 2018-09-13 | Outpatient (CLI) | payer MEDICARE ==
--- NOTE | 2018-09-14 03:33 | CT ---
EXAMINATION TYPE: CT abdomen wo con DATE OF EXAM: 09/13/2018 COMPARISON: None HISTORY: 83-year-old male left renal mass, cyst TECHNIQUE: Contiguous axial scanning of the abdomen without IV contrast. Coronal and sagittal reconst ructions performed. CT DLP: 262.9 mGycm Automated exposure control for dose reduction was used. FINDINGS: Median sternotomy wires are present. Heart normal size without pericardial effusion. Moderate bilater al gynecomastia is noted. 7 mm nodule at the right base in 5 mm nodule at the left base. Some underlying emphysematous cysts ar e present and generalized hazy densities that could represent atelectatic change. Tiny hiatal hernia. Fairly severe atherosclerotic changes throughout the aorta and iliac arteries. There is subtle nodular contour to the liver. No focal lesion is identified by noncontrast technique. Tiny layering gallstones within the nondistended gallbladder. Adrenal glands and spleen show no gross abnormality by noncontrast CT. Spleen is enlarged measuring 17.6 cm craniocaudal. Prominent vascular calcifications bilateral renal joshua. No hydronephrosis on either side. There is suggestion of an underlying soft tissue mass at the upper pole of left kidney. Lack of IV co ntrast limits assessment. Mass may measure up to 6.0 cm. Again, assessment is limited without IV cont rast. In addition, there may be some increased attenuation and enlargement of the proximal left renal vein, refer to axial images 27 through 29. Possible 1.1 cm left periaortic lymph node at this level. No dilated small bowel, free fluid, or free air. Normal appendix. Mild stool burden. No pericolonic inflammatory change. Bones: Advanced degenerative changes throughout the lumbar spine. Bilateral L5 pars defects with near ly grade 2 anterolisthesis at L5-S1. Baastrup's disease. IMPRESSION: 1. UNABLE TO EXCLUDE A MASS/RCC IN THE UPPER POLE LEFT KIDNEY THAT MAY MEASURE UP TO 6.0 CM. LACK OF IV CONTRAST LIMITS ASSESSMENT. 2. IN ADDITION, THERE IS SLIGHT INCREASED ATTENUATION AND SOMEWHAT EXPANDED APPEARANCE TO THE PROXIMA L LEFT RENAL VEIN. IN THE SETTING OF RCC, BLAND OR TUMOR THROMBUS ARE IN THE DIFFERENTIAL. 3. POSSIBLE 1.1 CM LEFT PARA-AORTIC LYMPH NODE AT THIS LEVEL. 4. A COUPLE BIBASILAR PULMONARY NODULES MEASURING UP TO 7 MM. FURTHER EVALUATION OF THE ENTIRE LUNGS IS RECOMMENDED. 5. CIRRHOSIS. LACK OF IV CONTRAST LIMITS ASSESSMENT FOR HEPATOMA. SPLENOMEGALY (17.6 CM) SUGGESTS UND ERLYING PORTAL VENOUS HYPERTENSION. 6. ADVANCED DEGENERATIVE CHANGES THROUGHOUT THE SPINE WITH NEARLY GRADE 3 ANTEROLISTHESIS AT L5-S1 SE CONDARY TO L5 PARS DEFECTS.
== END | disposition home or self-care (01) ==
LOC: RADCTMAIN 15:43
PROVIDERS: ATTEND Urology
DX: N28.89 Other specified disorders of kidney and ureter (principal)
CPT/HCPCS: 74150

== ENCOUNTER → 2018-10-24 | Outpatient (CLI) | payer MEDICARE ==
[2018-10-24 14:33] LABS: HCT 30.5 % (39.0-53.0); HGB 9.9 gm/dL (13.0-17.5); Hypochromasia Slight; MCH 33.4 pg (25.0-35.0); MCHC 32.6 g/dL (31.0-37.0); MCV 102.5 fL (80.0-100.0); Macrocytosis Slight; Poikilocytosis Slight; RBC 2.98 m/uL (4.30-5.90); RDW 14.6 % (11.5-15.5); WBC 2.4 k/uL (3.8-10.6)
[2018-10-24 14:34] LABS: Platelet Count 41 k/uL (150-450)
[2018-10-24 14:40] LABS: Appearance,Urine Clear (Clear); Bilirubin,Urine Negative (Negative); Blood,Urine Negative (Negative); Color,Urine Yellow; Glucose,Urine (UA) 1+ (Negative); Ketones,Urine Negative (Negative); Leukocyte Esterase,Urine Negative (Negative); Nitrite,Urine Negative (Negative); Protein,Urine Trace (Negative); Specific Gravity,Urine 1.017 (1.001-1.035)
[2018-10-24 20:31] LABS: Albumin/Globulin Ratio 1.67 (1.60-3.17); Anion Gap 2.9 mmol/L (4.00-12.00); Calcium 8.8 mg/dL (8.7-10.3); Carbon Dioxide 23.1 mmol/L (21.6-31.8); Globulin 1.8 g/dL (1.6-3.3); Magnesium 1.9 mg/dL (1.5-2.4); Phosphorus 2.8 mg/dL (2.4-5.1); Potassium 4.2 mmol/L (3.5-5.5); Total Bilirubin 0.8 mg/dL (0.3-1.2); Total Protein 4.8 g/dL (6.2-8.2); Uric Acid 5.9 mg/dL (3.7-8.7)
[2018-10-24 20:47] LABS: Parathyroid Hormone Intact 29.6 pg/mL (14.0-72.0)
[2018-10-24 21:08] LABS: Vitamin D 25 Hydroxy 37.1 ng/mL (30.0-100.0)
[2018-10-24 21:19] LABS: Iron Saturation 10.56 (15.00-50.00)
== END | disposition home or self-care (01) ==
LOC: LABWHC1 13:19
PROVIDERS: ATTEND Internal Medicine
DX: N39.0 Urinary tract infection, site not specified (principal); R80.9 Proteinuria, unspecified; E55.9 Vitamin D deficiency, unspecified; M10.9 Gout, unspecified; N18.9 Chronic kidney disease, unspecified; D63.1 Anemia in chronic kidney disease; N25.81 Secondary hyperparathyroidism of renal origin
CPT/HCPCS: 36415; 80053; 81003; 82043; 82306; 82570; 82728; 83540; 83550; 83735; 83970; 84100; 84550; 85027

== ENCOUNTER → 2019-02-19 | Outpatient (CLI) | payer MEDICARE ==
--- NOTE | 2019-02-19 16:13 | US ---
EXAMINATION TYPE: US venous doppler duplex LE LT DATE OF EXAM: 02/19/2019 4:02 PM COMPARISON: NONE CLINICAL HISTORY: M79.662,R22.42 PAIN AND SWELLING IN LT LOWER LIMB. Pt states swelling of left leg SIDE PERFORMED: Left TECHNIQUE: The lower extremity deep venous system is examined utilizing real time linear array sonog moni with graded compression, doppler sonography and color-flow sonography. VESSELS IMAGED: External Iliac Vein (EIV) Common Femoral Vein Deep Femoral Vein Greater Saphenous Vein * Femoral Vein Popliteal Vein Small Saphenous Vein * Proximal Calf Veins (* superficial vessels) Left Leg: Negative for DVT Attempted to call Dr's office at time of exam, no answer IMPRESSION: 1. Left lower extremity venous ultrasound negative for deep venous thrombosis.
== END | disposition home or self-care (01) ==
LOC: RADUSWWP 15:41
PROVIDERS: ATTEND Family Medicine
DX: M79.662 Pain in left lower leg (principal); R60.0 Localized edema